=== PATIENT | male | born 1975 | race Two or more races ===

== ENCOUNTER 2017-11-30 16:48 | Emergency (ER) | payer OTHER ==
[~2017-11-30] VITALS: Ht 175.3 cm; Wt 125.2 kg
[2017-11-30] MEDS ORDERED: cefTRIAXone 1GM/10ml IVPUSH 10 ML IV ONE (21:00)
[2017-11-30] MEDS ORDERED: VANCOMYCIN 1GM/250ML 250 ML IV ONE (21:00)
[2017-11-30 21:07] LABS: Basophils # (auto) 0.2 uL; Basophils % (auto) 1.2 % (0.0-2.0); Eosinophils # (auto) 0.4 uL; Eosinophils % (auto) 3.5 % (0.0-7.0); Hematocrit 44.5 % (41.0-53.0); Hemoglobin 15.4 g/dL (13.5-17.5); Lymphocytes # (auto) 4.1 uL; Lymphocytes % (auto) 32.2 % (10.0-50.0); Mean Corpuscular Hemoglobin 32.8 pg (28.0-32.0); Mean Corpuscular Hgb Conc. 34.7 g/dL (32.0-36.0); Mean Corpuscular Volume 94.3 fL (80.0-100.0); Monocytes # (auto) 1.2 uL; Monocytes % (auto) 9.1 % (0.0-12.0); Neutrophils # (auto) 6.9 uL; Nucleated Red Blood Cells % 0.1 %; Platelet Count (auto) 385 10^3/uL (140-450); Red Blood Cells 4.72 10^6/uL (4.5-5.90); Red Cell Distribution Width 12.7 % (11.8-14.3); White Blood Cell 12.7 10^3/uL (4.4-10.8)
[2017-11-30] MEDS ORDERED: glipiZIDE 5 MG TAB PO ONE (21:30)
[2017-11-30] MEDS ORDERED: metFORMIN HYDROCHLORIDE 500 MG TAB PO ONE (21:30)
[2017-11-30] MEDS ORDERED: GEMFIBROZIL 600 MG TAB PO ONE (21:30)
[2017-11-30 22:38] LABS: Albumin 3.7 g/dL (3.4-5.0); BUN/Creatinine Ratio 12.8; Calcium 8.9 mg/dL (8.5-10.1); Potassium 4.1 mmol/L (3.5-5.1)
[2017-11-30 22:41] LABS: Bilirubin, Total 0.3 mg/dL (0.2-1.0); Total Protein 8.5 g/dL (6.4-8.2)
[2017-12-01 00:24] VITALS: BP 137/92
== END 2017-12-01 00:50 | disposition short-term general hospital (02) ==
LOC: ER 16:48
DX: S61.231D Puncture wound without foreign body of left index finger without damage to nail, subsequent encounter (principal); L03.012 Cellulitis of left finger; E11.9 Type 2 diabetes mellitus without complications; I10 Essential (primary) hypertension; W45.8XXD Other foreign body or object entering through skin, subsequent encounter
CPT/HCPCS: 36415; 73200; 80053; 85025; 96365; 96375; 99285; J0696; J3370

== ENCOUNTER 2022-12-26 13:43 | Emergency (ER) | payer MEDICAID, OTHER ==
[~2022-12-26] VITALS: Ht 175.3 cm; Wt 100.0 kg
[2022-12-26] MEDS ORDERED: BENZ200C64 PO (16:59)
[2022-12-26] MEDS ORDERED: ALBUAER3 IN (16:59)
[2022-12-26] MEDS ORDERED: AZITTAB PO (16:59)
[2022-12-26] MEDS ORDERED: DexAMETHasone SOD PHOS 10MG/1ML VIAL INJ IM ONE (17:00)
[2022-12-26] MEDS ORDERED: AZITHROMYCIN 250 MG TAB PO ONE (17:00)
[2022-12-26 17:47] VITALS: BP 110/82; PULSE 78; RESP 18; TEMP 98; O2SAT 100
[2022-12-26] MEDS ORDERED: ALBUTEROL SULF HFA 90MCG INH 200DOSE IN SCH (22:00)
== END 2022-12-26 17:48 | disposition home or self-care (01) ==
LOC: ER 13:43
DX: U07.1 COVID-19 (principal); J20.9 Acute bronchitis, unspecified; R07.89 Other chest pain; I10 Essential (primary) hypertension; E11.9 Type 2 diabetes mellitus without complications
CPT/HCPCS: 71045; 96372; 99283; J1100

== ENCOUNTER 2023-07-13 15:18 | Emergency (ER) | payer MEDICAID ==
[~2023-07-13] VITALS: Ht 175.3 cm; Wt 104.5 kg
[~2023-07-13 15:18] MED LIST: ALBUAER3 IN; AZITTAB PO; BENZ200C64 PO
[2023-07-13 15:30] VITALS: BP 128/73; PULSE 113; RESP 18; O2SAT 99
[2023-07-13] MEDS ORDERED: IBUP-1455 PO (16:22)
[2023-07-13] MEDS: IBUPROFEN 600 MG TAB PO ONE (16:39)
== END 2023-07-13 16:58 | disposition home or self-care (01) ==
LOC: ER 15:18
DX: S52.502A Unspecified fracture of the lower end of left radius, initial encounter for closed fracture (principal); M25.532 Pain in left wrist; E11.9 Type 2 diabetes mellitus without complications; I10 Essential (primary) hypertension; E78.5 Hyperlipidemia, unspecified; F17.210 Nicotine dependence, cigarettes, uncomplicated; W06.XXXA Fall from bed, initial encounter; Y93.89 Activity, other specified; Y92.89 Other specified places as the place of occurrence of the external cause; Y99.8 Other external cause status
CPT/HCPCS: 73110